=== PATIENT | male | born 1980 | race Caucasian/White ===

== ENCOUNTER 2023-01-06 01:58 | Inpatient (IN) | payer SELFPAY ==
[2023-01-06] VITALS (46 sets, daily range): BP systolic 98–143; BP diastolic 69–95
[~2023-01-06] VITALS: Ht 177.8 cm; Wt 110.7 kg
[~2023-01-06 01:58] MED LIST: IBUP-779 PO; NAPROXIN PO
[2023-01-06] MEDS ORDERED: ONDANSETRON HCL 4MG/2ML INJ IV ONE (02:15)
[2023-01-06] MEDS ORDERED: SODIUM CHLORIDE 0.9% 1,000 ML IV ONE (02:15)
[2023-01-06 02:27] LABS: BASOPHILS % 0.9 % (0.0-2.0); HEMATOCRIT. 46.9 % (42.0-52.0); HEMOGLOBIN. 15.6 g/dL (14.0-18.0); LYMPHOCYTES % 24.9 % (20.0-50.0); MEAN CORPUSCULAR VOLUME 78.4 fL (80.0-94.0); MEAN PLATELET VOLUME 7.4 fl (7.4-10.4); NEUTROPHILS % 61.2 % (40.0-76.0); PLATELET 344 x1000/uL (130-400); RED BLOOD CELL COUNT 5.98 mill/uL (4.7-6.1); RED CELL DISTRIBUTION WIDTH 14.3 % (11.6-14.6)
[2023-01-06 02:30] LABS: CHLORIDE 106 mEq/L (98-107)
[2023-01-06] MEDS ORDERED: METOCLOPRAMIDE HCL 10MG/2ML VIAL IV ONE (02:30)
[2023-01-06 02:37] LABS: ETHANOL BLOOD 228 mg/dL
[2023-01-06 03:15] LABS: *AMPHETAMINES SCREEN URINE PRESUMTIVE POSITIVE (NEGATIVE); *BARBITURATES SCREEN URINE NEGATIVE (NEGATIVE); *BENZODIAZEPINES SCREEN URINE NEGATIVE (NEGATIVE); *COCAINE SCREEN URINE NEGATIVE (NEGATIVE); CANNABINOID URINE SCREEN NEGATIVE (NEGATIVE); METHADONE URINE SCREEN NEGATIVE (NEGATIVE); OPIATES URINE SCREEN NEGATIVE (NEGATIVE); PHENCYCLIDINE URINE SCREEN NEGATIVE (NEGATIVE)
[2023-01-06] MEDS ORDERED: AMPICILLIN SOD/SULBACTAM NA 3 G in SODIUM CHLORIDE 0.9% 100 ML IV SCH (03:15)
[2023-01-06] MEDS ORDERED: DIPHENHYDRAMINE 50MG/ML VIAL IV ONE (03:30)
[2023-01-06] MEDS ORDERED: LABETALOL 5MG/ML SYR 20 MG/4 ML SYRINGE IV ONE (04:00)
[2023-01-06] MEDS ORDERED: FENTANYL CITRATE/PF 50MCG/ML 2ML VIAL IV ONE (04:15)
[2023-01-06] MEDS ORDERED: PROPOFOL 10MG/ML 100ML 100 ML IV ONE (04:15)
[2023-01-06] MEDS ORDERED: FUROSEMIDE 100MG/10ML VIAL IVP ONE (04:15)
[2023-01-06] MEDS ORDERED: FUROSEMIDE 100MG/10ML VIAL IVP NR (04:30)
[2023-01-06] MEDS ORDERED: LORAZEPAM 2MG/ML CPJ IV ONE (04:45)
[2023-01-06 06:18] LABS: BG BASE EXCESS -6.9 mmol/L (-2.0-2.0); BG CARBOXYHEMOGLOBIN 1.3 % (0.5-1.5); BG DEOXYHEMOGLOBIN 5.7 % (0.0-5.0); BG FRACTION INSPIRED OXYGEN 100; BG HCO3 ACT 20.7 mmol/L (22.0-26.0); BG METHEMOGLOBIN 0.3 % (0.0-1.5); BG OXYGEN SATURATION 94.2 % (92.0-98.5); BG OXYHEMOGLOBIN 92.7 % (94.0-97.0); BG PCO2 49.3 mmHg (35.0-45.0); BG PH 7.242 (7.350-7.450); BG PO2 80.5 mmHg (75.0-100.0); BG SAMPLE SITE RIGHT BRACHIAL
[2023-01-06] MEDS ORDERED: FENTANYL 2500MCG/250ML PMX 250 ML IV ONE (06:45)
[2023-01-06] MEDS ORDERED: FENTANYL CITRATE 2,500 MCG in SODIUM CHLORIDE 0.9% 200 ML IV PRN (06:45)
[2023-01-06] MEDS ORDERED: MIDAZOLAM HCL 2 MG/2 ML VIAL IV ONE (07:00)
[2023-01-06] MEDS ORDERED: VECURONIUM BROMIDE 10 MG/VIAL IV ONE (07:00)
[2023-01-06] MEDS ORDERED: PIPERACILLIN/TAZOBACTAM 3.375GM/50ML PREMIX IV SCH (09:45)
[2023-01-06] MEDS ORDERED: PROPOFOL 10MG/ML 100ML 100 ML IV PRN (10:00)
[2023-01-06] MEDS ORDERED: PIPERACILLIN/TAZ 3.375G PREMIX 50 ML IV NR (10:00)
[2023-01-06] MEDS ORDERED: LORAZEPAM 2MG/ML CPJ IM PRN (10:00)
[2023-01-06] MEDS: PANTOPRAZOLE SODIUM 40 MG/VIAL IV SCH (10:16)
[2023-01-06] MEDS: LORAZEPAM 2MG/ML CPJ IV PRN (10:16)
[2023-01-06] MEDS ORDERED: FOLIC ACID 1 MG, THIAMINE HCL 100 MG, MVI, ADULT NO.1 10 ML in DEXTROSE 5% WATER 1,000 ML IV ONE ×4 (10:30)
[2023-01-06] MEDS ORDERED: VANCOMYCIN 2,000 MG in DEXT 5% WATER 500 ML IV NR (10:30)
[2023-01-06] MEDS ORDERED: MIDAZOLAM HCL 100 MG in SODIUM CHLORIDE 0.9% 80 ML IV PRN (11:00)
[2023-01-06 11:12] LABS: PROTHROMBIN TIME 10.5 sec (9.6-11.0)
[2023-01-06 11:17] LABS: PHOSPHORUS 2.4 mg/dL (2.5-4.9)
[2023-01-06 11:43] LABS: BG CARBOXYHEMOGLOBIN 0.6 % (0.5-1.5); BG DEOXYHEMOGLOBIN 1.9 % (0.0-5.0); BG FRACTION INSPIRED OXYGEN 100; BG HCO3 ACT 21.8 mmol/L (22.0-26.0); BG METHEMOGLOBIN 0.1 % (0.0-1.5); BG OXYGEN SATURATION 98.1 % (92.0-98.5); BG OXYHEMOGLOBIN 97.4 % (94.0-97.0); BG PCO2 50.9 mmHg (35.0-45.0); BG PH 7.249 (7.350-7.450); BG PO2 133.9 mmHg (75.0-100.0); BG SAMPLE SITE RIGHT RADIAL; BG TOTAL HEMOGLOBIN 16.4 g/dL (12.0-18.0); BG VENT MODE VENT - AC
[2023-01-06] MEDS: MIDAZOLAM HCL 100 MG in SODIUM CHLORIDE 0.9% 80 ML IV PRN ×2 (11:43→21:32)
[2023-01-06 12:28] LABS: FOLIC ACID (FOLATE) SERUM >20 ng/mL ng/mL (>5.38); VITAMIN B12 SERUM 504 pg/mL (211-911)
[2023-01-06] MEDS: FENTANYL CITRATE/PF 2,500 MCG in SODIUM CHLORIDE 0.9% 200 ML IV PRN (13:19)
[2023-01-06] MEDS: ENOXAPARIN 40MG/0.4ML SYR SUBCUT SCH ×2 (13:20→21:01)
[2023-01-06 14:12] LABS: CREATINE KINASE MB FRACTION 32.4 ng/mL (0.5-3.6)
[2023-01-06] MEDS ORDERED: PIPERACILLIN/TAZOBACTAM 3.375G in DEXT 5% WATER 50ML IV SCH (15:00)
[2023-01-06] MEDS ORDERED: DILTIAZEM HCL 5MG/ML 5ML VIAL IV NR (15:00)
[2023-01-06] MEDS: PIPERACILLIN/TAZOBACTAM 3.375G in DEXT 5% WATER 50ML IV SCH ×2 (15:28→21:00)
[2023-01-06] MEDS ORDERED: IPRATROPIUM/ALBUTEROL 0.5-3(2.5)MG/3ML NEB HHN PRN (17:00)
[2023-01-06] MEDS: METHYLPREDNISOLONE SOD SUCC 125 MG/2 ML VIAL IV SCH ×2 (17:23→23:19)
[2023-01-06] MEDS: DEXT 5%/0.9% NACL 1,000 ML IV SCH (17:23)
[2023-01-06] MEDS ORDERED: VANCOMYCIN 1.25GM PMX (XELLIA) 250 ML IV SCH ×2 (18:00)
[2023-01-06 18:44] LABS: CLARITY URINE TURBID (CLEAR); COLOR URINE RED (YELLOW); KETONES URINE NEGATIVE (NEGATIVE); LEUKOCYTE ESTERASE URINE 3+ (NEGATIVE); NITRITE URINE NEGATIVE (NEGATIVE); OCCULT BLOOD URINE 3+ (NEGATIVE); PH URINE 6.5 (4.5-8.0); PROTEIN URINE 3+ (NEGATIVE); UROBILINOGEN URINE 0.2 E.U./dL (0.2-1.0)
[2023-01-06] MEDS: DILTIAZEM HCL 60MG TABLET PO SCH (21:10)
[2023-01-07] VITALS (101 sets, daily range): BP systolic 131–174; BP diastolic 53–116
[2023-01-07] MEDS: DEXT 5%/0.9% NACL 1,000 ML IV SCH ×3 (02:42→23:48)
[2023-01-07 05:10] LABS: HEMATOCRIT. 45.5 % (42.0-52.0); MEAN CORPUSCULAR HEMOGLOBIN 26.1 pg (28.0-32.0); MEAN CORPUSCULAR VOLUME 79.1 fL (80.0-94.0); MEAN PLATELET VOLUME 7.9 fl (7.4-10.4); PLATELET 281 x1000/uL (130-400); RED BLOOD CELL COUNT 5.76 mill/uL (4.7-6.1); RED CELL DISTRIBUTION WIDTH 14.3 % (11.6-14.6)
[2023-01-07] MEDS: METHYLPREDNISOLONE SOD SUCC 125 MG/2 ML VIAL IV SCH ×4 (05:43→23:48)
[2023-01-07] MEDS: PIPERACILLIN/TAZOBACTAM 3.375G in DEXT 5% WATER 50ML IV SCH ×3 (05:43→21:22)
[2023-01-07] MEDS: DILTIAZEM HCL 60MG TABLET PO SCH ×3 (05:43→21:23)
[2023-01-07] MEDS: FENTANYL CITRATE/PF 2,500 MCG in SODIUM CHLORIDE 0.9% 200 ML IV PRN (05:56)
[2023-01-07] MEDS ORDERED: CALCIUM GLUCONATE 1,000 MG in DEXT 5% WATER 90 ML IV ONE (07:45)
[2023-01-07] MEDS ORDERED: DEXTROSE 50% WATER 50ML SYRINGE IV NR (08:00)
[2023-01-07] MEDS ORDERED: INSULIN REGULAR (HUMULIN R) 300UNITS/3ML VIAL IV NR (08:00)
[2023-01-07] MEDS ORDERED: SODIUM BICARBONATE 8.4% 1 MEQ/ML 50ML SYR IV NR (08:00)
[2023-01-07] MEDS: ENOXAPARIN 40MG/0.4ML SYR SUBCUT SCH ×2 (08:44→21:24)
[2023-01-07] MEDS: PANTOPRAZOLE SODIUM 40 MG/VIAL IV SCH (08:50)
[2023-01-07 08:54] LABS: PLATELET ESTIMATE NORMAL
[2023-01-07] MEDS ORDERED: CALCIUM GLUCONATE 1GM PREMIX 50 ML IV NR (09:00)
[2023-01-07 09:21] LABS: BG BASE EXCESS -4.7 mmol/L (-2.0-2.0); BG CARBOXYHEMOGLOBIN 0.5 % (0.5-1.5); BG DEOXYHEMOGLOBIN 1.7 % (0.0-5.0); BG FRACTION INSPIRED OXYGEN 90; BG HCO3 ACT 23.3 mmol/L (22.0-26.0); BG METHEMOGLOBIN 0.1 % (0.0-1.5); BG OXYGEN SATURATION 98.3 % (92.0-98.5); BG OXYHEMOGLOBIN 97.7 % (94.0-97.0); BG PCO2 54.6 mmHg (35.0-45.0); BG PH 7.248 (7.350-7.450); BG PO2 145.3 mmHg (75.0-100.0); BG SAMPLE SITE RIGHT RADIAL; BG TOTAL HEMOGLOBIN 14.7 g/dL (12.0-18.0); BG TOTAL RESPIRATORY RATE 25 b/min; BG VENT MODE VENT - AC
[2023-01-07] MEDS: MIDAZOLAM HCL 100 MG in SODIUM CHLORIDE 0.9% 80 ML IV PRN ×2 (09:40→23:54)
[2023-01-07 10:20] LABS: VANCOMYCIN TROUGH 10.7 ug/mL (5.0-10.0)
[2023-01-07] MEDS ORDERED: HEPARIN 1000 UNITS/ML 10ML ONE (10:22)
[2023-01-07] MEDS ORDERED: LIDOCAINE HCL 1% 10 MG/ML 10ML VIAL ONE (10:22)
[2023-01-07 11:27] LABS: HEPATITIS B SURFACE ANTIGEN NEGATIVE
[2023-01-08] VITALS (97 sets, daily range): BP systolic 132–186; BP diastolic 64–146
[2023-01-08 01:23] LABS: CREATINE KINASE MB FRACTION 9.2 ng/mL (0.5-3.6)
[2023-01-08] MEDS ORDERED: AMLODIPINE 10MG TABLET PO PRN (02:30)
[2023-01-08] MEDS ORDERED: AMLODIPINE 10MG TABLET PO SCH ×2 (02:30→09:00)
[2023-01-08] MEDS: CLONIDINE 0.1MG TABLET PO PRN (02:56)
[2023-01-08 05:41] LABS: HEMATOCRIT. 39.4 % (42.0-52.0); HEMOGLOBIN. 12.7 g/dL (14.0-18.0); MEAN CORPUSCULAR HEMOGLOBIN 25.3 pg (28.0-32.0); MEAN CORPUSCULAR VOLUME 78.6 fL (80.0-94.0); MEAN PLATELET VOLUME 8.5 fl (7.4-10.4); PLATELET 262 x1000/uL (130-400); RED BLOOD CELL COUNT 5.01 mill/uL (4.7-6.1); RED CELL DISTRIBUTION WIDTH 14.5 % (11.6-14.6)
[2023-01-08] MEDS: DILTIAZEM HCL 60MG TABLET PO SCH ×3 (05:53→21:16)
[2023-01-08] MEDS: PIPERACILLIN/TAZOBACTAM 3.375G in DEXT 5% WATER 50ML IV SCH ×3 (05:53→21:19)
[2023-01-08] MEDS: METHYLPREDNISOLONE SOD SUCC 125 MG/2 ML VIAL IV SCH ×2 (05:53→11:30)
[2023-01-08 06:00] LABS: CHLORIDE 107 mEq/L (98-107)
[2023-01-08 06:23] LABS: CREATINE KINASE 3284 IU/L (39-308); CREATINE KINASE MB FRACTION 7.1 ng/mL (0.5-3.6); PHOSPHORUS 3.6 mg/dL (2.5-4.9)
[2023-01-08] MEDS ORDERED: SODIUM CHLORIDE 0.45% 1,000 ML IV SCH (07:30)
[2023-01-08 07:32] LABS: PLATELET ESTIMATE NORMAL
[2023-01-08 07:58] LABS: BG BASE EXCESS -2.2 mmol/L (-2.0-2.0); BG CARBOXYHEMOGLOBIN 0.7 % (0.5-1.5); BG DEOXYHEMOGLOBIN 3.6 % (0.0-5.0); BG HCO3 ACT 25.4 mmol/L (22.0-26.0); BG METHEMOGLOBIN 0.3 % (0.0-1.5); BG OXYGEN SATURATION 96.4 % (92.0-98.5); BG OXYHEMOGLOBIN 95.4 % (94.0-97.0); BG PCO2 55.3 mmHg (35.0-45.0); BG PO2 93.8 mmHg (75.0-100.0); BG SAMPLE SITE RIGHT RADIAL; BG TOTAL HEMOGLOBIN 13.7 g/dL (12.0-18.0); BG VENT MODE VENT - AC
[2023-01-08 08:07] LABS: CREATINE KINASE 3535 IU/L (39-308)
[2023-01-08] MEDS: ENOXAPARIN 40MG/0.4ML SYR SUBCUT SCH ×2 (08:43→21:16)
[2023-01-08] MEDS: PANTOPRAZOLE SODIUM 40 MG/VIAL IV SCH (08:43)
[2023-01-08] MEDS: DEXT 5%/0.9% NACL 1,000 ML IV SCH ×2 (08:44→17:35)
[2023-01-08 13:08] LABS: CREATINE KINASE MB FRACTION 5.4 ng/mL (0.5-3.6)
[2023-01-08] MEDS: FENTANYL CITRATE/PF 2,500 MCG in SODIUM CHLORIDE 0.9% 200 ML IV PRN (13:08)
[2023-01-08] MEDS: METHYLPREDNISOLONE SOD SUCC 40 MG/ML VIAL IV SCH (17:24)
[2023-01-08] MEDS: MIDAZOLAM HCL 100 MG in SODIUM CHLORIDE 0.9% 80 ML IV PRN (20:15)
[2023-01-09] VITALS (93 sets, daily range): BP systolic 137–186; BP diastolic 89–138
[2023-01-09] MEDS: METHYLPREDNISOLONE SOD SUCC 40 MG/ML VIAL IV SCH ×4 (00:17→17:02)
[2023-01-09 04:29] LABS: HEMOGLOBIN. 12.3 g/dL (14.0-18.0); MEAN CORPUSCULAR HEMOGLOBIN 25.7 pg (28.0-32.0); MEAN CORPUSCULAR VOLUME 77.6 fL (80.0-94.0); MEAN PLATELET VOLUME 8.2 fl (7.4-10.4); PLATELET 258 x1000/uL (130-400); RED BLOOD CELL COUNT 4.76 mill/uL (4.7-6.1); RED CELL DISTRIBUTION WIDTH 14.5 % (11.6-14.6)
[2023-01-09 05:00] LABS: PHOSPHORUS 2.6 mg/dL (2.5-4.9)
[2023-01-09 05:07] LABS: PLATELET ESTIMATE NORMAL
[2023-01-09] MEDS: PIPERACILLIN/TAZOBACTAM 3.375G in DEXT 5% WATER 50ML IV SCH ×3 (05:28→22:44)
[2023-01-09] MEDS: DEXT 5%/0.9% NACL 1,000 ML IV SCH (05:28)
[2023-01-09] MEDS: DILTIAZEM HCL 60MG TABLET PO SCH (05:30)
[2023-01-09] MEDS: LORAZEPAM 2MG/ML CPJ IV PRN ×2 (07:39→12:29)
[2023-01-09] MEDS: ENOXAPARIN 40MG/0.4ML SYR SUBCUT SCH (08:01)
[2023-01-09] MEDS: PANTOPRAZOLE SODIUM 40 MG/VIAL IV SCH (08:01)
[2023-01-09] MEDS: MIDAZOLAM HCL 100 MG in SODIUM CHLORIDE 0.9% 80 ML IV PRN ×2 (08:02→18:22)
[2023-01-09 08:15] LABS: BG BASE EXCESS -1.1 mmol/L (-2.0-2.0); BG CARBOXYHEMOGLOBIN 0.4 % (0.5-1.5); BG DEOXYHEMOGLOBIN 2.6 % (0.0-5.0); BG FRACTION INSPIRED OXYGEN 70; BG HCO3 ACT 22.6 mmol/L (22.0-26.0); BG METHEMOGLOBIN 0.3 % (0.0-1.5); BG OXYGEN SATURATION 97.4 % (92.0-98.5); BG OXYHEMOGLOBIN 96.7 % (94.0-97.0); BG PCO2 34.5 mmHg (35.0-45.0); BG PH 7.434 (7.350-7.450); BG PO2 98.9 mmHg (75.0-100.0); BG SAMPLE SITE RIGHT RADIAL; BG TOTAL HEMOGLOBIN 12.6 g/dL (12.0-18.0); BG VENT MODE VENT - AC
[2023-01-09] MEDS: THIAMINE HCL 100MG TABLET NG SCH (09:00)
[2023-01-09] MEDS: FOLIC ACID 1MG TABLET NG SCH (09:00)
[2023-01-09 10:03] LABS: CREATINE KINASE 1723 IU/L (39-308)
[2023-01-09] MEDS ORDERED: RISPERIDONE 0.5MG TABLET PO SCH (11:00)
[2023-01-09] MEDS ORDERED: AMLODIPINE 5MG TABLET PO SCH (14:00)
[2023-01-09] MEDS: FENTANYL CITRATE/PF 2,500 MCG in SODIUM CHLORIDE 0.9% 200 ML IV PRN (14:21)
[2023-01-09] MEDS: PROPOFOL 10MG/ML 100ML 100 ML IV PRN ×2 (14:43→22:51)
[2023-01-09] MEDS: CLONIDINE 0.1MG TABLET PO PRN (21:01)
[2023-01-09] MEDS: RISPERIDONE 0.5MG TABLET PO SCH (21:01)
[2023-01-09] MEDS: ENOXAPARIN 30MG/0.3ML SYR SUBCUT SCH (21:02)
[2023-01-10] VITALS (97 sets, daily range): BP systolic 127–185; BP diastolic 73–126
[2023-01-10] MEDS: METHYLPREDNISOLONE SOD SUCC 40 MG/ML VIAL IV SCH ×3 (00:37→18:16)
[2023-01-10] MEDS: PROPOFOL 10MG/ML 100ML 100 ML IV PRN ×5 (04:38→23:02)
[2023-01-10] MEDS: PIPERACILLIN/TAZOBACTAM 3.375G in DEXT 5% WATER 50ML IV SCH ×3 (06:03→21:41)
[2023-01-10 06:11] LABS: BASOPHILS % 0.1 % (0.0-2.0); HEMATOCRIT. 37.5 % (42.0-52.0); HEMOGLOBIN. 12.2 g/dL (14.0-18.0); LYMPHOCYTES % 3.4 % (20.0-50.0); MEAN CORPUSCULAR HEMOGLOBIN 25.6 pg (28.0-32.0); MEAN CORPUSCULAR VOLUME 78.4 fL (80.0-94.0); MEAN PLATELET VOLUME 7.9 fl (7.4-10.4); MONOCYTES % 5.8 % (2.0-8.0); NEUTROPHILS % 90.7 % (40.0-76.0); PLATELET 261 x1000/uL (130-400); RED BLOOD CELL COUNT 4.78 mill/uL (4.7-6.1); RED CELL DISTRIBUTION WIDTH 14.3 % (11.6-14.6)
[2023-01-10 06:29] LABS: PHOSPHORUS 3.5 mg/dL (2.5-4.9)
[2023-01-10] MEDS: DEXTROSE 5% WATER 1,000 ML IV SCH ×2 (07:45→23:55)
[2023-01-10] MEDS: FOLIC ACID 1MG TABLET NG SCH (08:39)
[2023-01-10] MEDS: RISPERIDONE 0.5MG TABLET PO SCH (08:39)
[2023-01-10] MEDS: THIAMINE HCL 100MG TABLET NG SCH (08:39)
[2023-01-10] MEDS: PANTOPRAZOLE SODIUM 40 MG/VIAL IV SCH (08:39)
[2023-01-10] MEDS: AMLODIPINE 10MG TABLET PO SCH (08:40)
[2023-01-10] MEDS: CLONIDINE 0.1MG TABLET PO PRN ×2 (08:40→13:53)
[2023-01-10] MEDS: ENOXAPARIN 30MG/0.3ML SYR SUBCUT SCH ×2 (08:48→20:16)
[2023-01-10] MEDS ORDERED: PANTOPRAZOLE SODIUM 40 MG/VIAL IV SCH (09:00)
[2023-01-10 09:14] LABS: BG BASE EXCESS -0.8 mmol/L (-2.0-2.0); BG CARBOXYHEMOGLOBIN 0.6 % (0.5-1.5); BG HCO3 ACT 23.7 mmol/L (22.0-26.0); BG METHEMOGLOBIN 0.3 % (0.0-1.5); BG OXYHEMOGLOBIN 94.1 % (94.0-97.0); BG PCO2 38.9 mmHg (35.0-45.0); BG PH 7.403 (7.350-7.450); BG PO2 72.8 mmHg (75.0-100.0); BG SAMPLE SITE RIGHT RADIAL; BG TOTAL HEMOGLOBIN 12.4 g/dL (12.0-18.0); BG VENT MODE VENT - AC
[2023-01-10] MEDS: LORAZEPAM 2MG/ML CPJ IV PRN ×2 (11:40→18:15)
[2023-01-10] MEDS: MIDAZOLAM HCL 100 MG in SODIUM CHLORIDE 0.9% 80 ML IV PRN ×2 (11:52→23:55)
[2023-01-10] MEDS: FENTANYL CITRATE/PF 2,500 MCG in SODIUM CHLORIDE 0.9% 200 ML IV PRN (11:54)
[2023-01-10] MEDS ORDERED: HYDRALAZINE HCL 50MG TABLET PO NR (12:30)
[2023-01-10] MEDS: HYDRALAZINE HCL 50MG TABLET PO SCH ×2 (13:52→21:42)
[2023-01-10] MEDS: ACETAMINOPHEN 650MG/20.3ML UDC PO PRN ×2 (13:56→20:15)
[2023-01-10 16:31] LABS: PLATELET ESTIMATE NORMAL
[2023-01-10] MEDS: RISPERIDONE 1MG TABLET PO SCH (20:15)
[2023-01-11] VITALS (95 sets, daily range): BP systolic 123–173; BP diastolic 71–112
[2023-01-11] MEDS: PROPOFOL 10MG/ML 100ML 100 ML IV PRN ×7 (02:01→22:42)
[2023-01-11 05:39] LABS: HEMATOCRIT. 37.6 % (42.0-52.0); HEMOGLOBIN. 12.2 g/dL (14.0-18.0); MEAN CORPUSCULAR HEMOGLOBIN 25.3 pg (28.0-32.0); MEAN CORPUSCULAR VOLUME 78.1 fL (80.0-94.0); MEAN PLATELET VOLUME 7.9 fl (7.4-10.4); PLATELET 242 x1000/uL (130-400); RED BLOOD CELL COUNT 4.82 mill/uL (4.7-6.1)
[2023-01-11] MEDS: PIPERACILLIN/TAZOBACTAM 3.375G in DEXT 5% WATER 50ML IV SCH ×3 (06:05→21:33)
[2023-01-11] MEDS: HYDRALAZINE HCL 50MG TABLET PO SCH ×3 (06:06→21:33)
[2023-01-11 08:21] LABS: BG CARBOXYHEMOGLOBIN 0.4 % (0.5-1.5); BG DEOXYHEMOGLOBIN 2.9 % (0.0-5.0); BG FRACTION INSPIRED OXYGEN 70; BG HCO3 ACT 24.3 mmol/L (22.0-26.0); BG METHEMOGLOBIN 0.3 % (0.0-1.5); BG OXYGEN SATURATION 97.1 % (92.0-98.5); BG OXYHEMOGLOBIN 96.4 % (94.0-97.0); BG PCO2 31.5 mmHg (35.0-45.0); BG PH 7.506 (7.350-7.450); BG PO2 91.2 mmHg (75.0-100.0); BG SAMPLE SITE RIGHT BRACHIAL; BG TOTAL HEMOGLOBIN 14.1 g/dL (12.0-18.0); BG VENT MODE VENT - AC
[2023-01-11] MEDS: LORAZEPAM 2MG/ML CPJ IV PRN ×3 (09:07→22:27)
[2023-01-11] MEDS: MIDAZOLAM HCL 100 MG in SODIUM CHLORIDE 0.9% 80 ML IV PRN ×2 (09:08→17:33)
[2023-01-11] MEDS: AMLODIPINE 10MG TABLET PO SCH (09:09)
[2023-01-11] MEDS: THIAMINE HCL 100MG TABLET NG SCH (09:09)
[2023-01-11] MEDS: RISPERIDONE 1MG TABLET PO SCH ×2 (09:09→21:32)
[2023-01-11] MEDS: ACETAMINOPHEN 650MG/20.3ML UDC PO PRN ×2 (09:09→20:37)
[2023-01-11] MEDS: METHYLPREDNISOLONE SOD SUCC 40 MG/ML VIAL IV SCH ×2 (09:10→17:31)
[2023-01-11] MEDS: FOLIC ACID 1MG TABLET NG SCH (09:10)
[2023-01-11] MEDS: ENOXAPARIN 30MG/0.3ML SYR SUBCUT SCH ×2 (09:34→21:32)
[2023-01-11] MEDS: PANTOPRAZOLE SODIUM 40 MG/VIAL IV SCH (09:34)
[2023-01-11 10:00] LABS: PLATELET ESTIMATE NORMAL
[2023-01-11 11:06] LABS: CREATINE KINASE 428 IU/L (39-308)
[2023-01-11] MEDS: DOCUSATE SODIUM SUGAR FREE 100MG/10ML UDC NG SCH (13:49)
[2023-01-11] MEDS: FENTANYL CITRATE/PF 2,500 MCG in SODIUM CHLORIDE 0.9% 200 ML IV PRN (13:51)
[2023-01-11] MEDS ORDERED: METOPROLOL TARTRATE 50MG TABLET PO NR (17:30)
[2023-01-11] MEDS: CLONIDINE 0.1MG TABLET PO PRN (20:37)
[2023-01-11] MEDS: METOPROLOL TARTRATE 50MG TABLET PO SCH (22:28)
[2023-01-12] VITALS (96 sets, daily range): BP systolic 101–141; BP diastolic 51–84
[2023-01-12] MEDS ORDERED: QUETIAPINE FUMARATE 25MG TABLET PO NR (01:15)
[2023-01-12] MEDS ORDERED: HYDROCODONE/ACETAMINOPHEN 5/325MG TABLET PO PRN (01:15)
[2023-01-12] MEDS ORDERED: LORAZEPAM 2MG/ML CPJ IV NR (01:15)
[2023-01-12] MEDS: PROPOFOL 10MG/ML 100ML 100 ML IV PRN ×9 (01:15→21:47)
[2023-01-12] MEDS: ACETAMINOPHEN 650MG/20.3ML UDC PO PRN ×4 (02:57→20:01)
[2023-01-12] MEDS: MIDAZOLAM HCL 100 MG in SODIUM CHLORIDE 0.9% 80 ML IV PRN ×2 (02:58→13:59)
[2023-01-12] MEDS: FENTANYL CITRATE/PF 2,500 MCG in SODIUM CHLORIDE 0.9% 200 ML IV PRN (02:59)
[2023-01-12 04:07] LABS: HEMATOCRIT. 37.2 % (42.0-52.0); HEMOGLOBIN. 11.9 g/dL (14.0-18.0); MEAN CORPUSCULAR HEMOGLOBIN 25.3 pg (28.0-32.0); MEAN CORPUSCULAR VOLUME 78.7 fL (80.0-94.0); MEAN PLATELET VOLUME 7.7 fl (7.4-10.4); PLATELET 231 x1000/uL (130-400); RED BLOOD CELL COUNT 4.72 mill/uL (4.7-6.1); RED CELL DISTRIBUTION WIDTH 14.3 % (11.6-14.6)
[2023-01-12] MEDS: HYDRALAZINE HCL 50MG TABLET PO SCH ×3 (06:13→21:47)
[2023-01-12 07:42] LABS: BG BASE EXCESS -0.7 mmol/L (-2.0-2.0); BG CARBOXYHEMOGLOBIN 0.3 % (0.5-1.5); BG DEOXYHEMOGLOBIN 3.3 % (0.0-5.0); BG METHEMOGLOBIN 0.3 % (0.0-1.5); BG OXYGEN SATURATION 96.7 % (92.0-98.5); BG OXYHEMOGLOBIN 96.1 % (94.0-97.0); BG PCO2 45.2 mmHg (35.0-45.0); BG PO2 93.3 mmHg (75.0-100.0); BG SAMPLE SITE RIGHT RADIAL; BG TOTAL HEMOGLOBIN 12.3 g/dL (12.0-18.0); BG VENT MODE VENT - AC
[2023-01-12] MEDS: LORAZEPAM 2MG/ML CPJ IV PRN ×5 (08:22→18:56)
[2023-01-12] MEDS: PANTOPRAZOLE SODIUM 40 MG/VIAL IV SCH (08:23)
[2023-01-12] MEDS: AMLODIPINE 10MG TABLET PO SCH (08:23)
[2023-01-12] MEDS: DOCUSATE SODIUM SUGAR FREE 100MG/10ML UDC NG SCH (08:23)
[2023-01-12] MEDS: METOPROLOL TARTRATE 50MG TABLET PO SCH ×2 (08:24→20:23)
[2023-01-12] MEDS: RISPERIDONE 1MG TABLET PO SCH ×2 (08:24→20:23)
[2023-01-12] MEDS: THIAMINE HCL 100MG TABLET NG SCH (08:24)
[2023-01-12] MEDS: FOLIC ACID 1MG TABLET NG SCH (08:24)
[2023-01-12] MEDS: ENOXAPARIN 30MG/0.3ML SYR SUBCUT SCH ×2 (08:30→20:22)
[2023-01-12] MEDS: METHYLPREDNISOLONE SOD SUCC 40 MG/ML VIAL IV SCH (08:31)
[2023-01-12] MEDS ORDERED: HALOPERIDOL LACTATE 5MG/ML VIAL IM NR (11:15)
[2023-01-12] MEDS ORDERED: DEXTROSE 50% WATER 50ML SYRINGE IV PRN (12:00)
[2023-01-12] MEDS ORDERED: NALOXONE HCL 0.4MG/ML VIAL IV PRN (12:00)
[2023-01-12] MEDS: INSULIN LISPRO 100 UNITS/ML SUBCUT SCH ×3 (12:06→23:26)
[2023-01-12] MEDS: BLOOD SUGAR DIAGNOSTIC STRIP TEST SCH ×3 (12:06→23:25)
[2023-01-12] MEDS ORDERED: BENZTROPINE MESYLATE 1 MG/ML 2ML VIAL IM NR (12:30)
[2023-01-12 14:07] LABS: PLATELET ESTIMATE NORMAL
[2023-01-12] MEDS ORDERED: AZITHROMYCIN 500 MG TABLET GT NR (16:00)
[2023-01-13] VITALS (91 sets, daily range): BP systolic 113–180; BP diastolic 47–114
[2023-01-13] MEDS: MIDAZOLAM HCL 100 MG in SODIUM CHLORIDE 0.9% 80 ML IV PRN (00:27)
[2023-01-13] MEDS: FENTANYL CITRATE/PF 2,500 MCG in SODIUM CHLORIDE 0.9% 200 ML IV PRN (00:28)
[2023-01-13] MEDS: PROPOFOL 10MG/ML 100ML 100 ML IV PRN ×5 (00:28→10:28)
[2023-01-13] MEDS: ACETAMINOPHEN 650MG/20.3ML UDC PO PRN (03:31)
[2023-01-13 05:10] LABS: BASOPHILS % 0.1 % (0.0-2.0); EOSINOPHILS % 1.7 % (0.0-5.0); HEMATOCRIT. 35.1 % (42.0-52.0); HEMOGLOBIN. 11.4 g/dL (14.0-18.0); LYMPHOCYTES % 12.1 % (20.0-50.0); MEAN CORPUSCULAR HEMOGLOBIN 25.7 pg (28.0-32.0); MONOCYTES % 7.1 % (2.0-8.0); PLATELET 222 x1000/uL (130-400); RED BLOOD CELL COUNT 4.44 mill/uL (4.7-6.1); RED CELL DISTRIBUTION WIDTH 14.7 % (11.6-14.6)
[2023-01-13] MEDS: INSULIN LISPRO 100 UNITS/ML SUBCUT SCH ×3 (06:00→18:00)
[2023-01-13] MEDS: BLOOD SUGAR DIAGNOSTIC STRIP TEST SCH ×3 (06:05→18:14)
[2023-01-13] MEDS: HYDRALAZINE HCL 50MG TABLET PO SCH ×3 (06:18→22:24)
[2023-01-13 08:04] LABS: BG BASE EXCESS -1.2 mmol/L (-2.0-2.0); BG CARBOXYHEMOGLOBIN 0.3 % (0.5-1.5); BG DEOXYHEMOGLOBIN 4.3 % (0.0-5.0); BG HCO3 ACT 23.2 mmol/L (22.0-26.0); BG METHEMOGLOBIN 0.3 % (0.0-1.5); BG OXYGEN SATURATION 95.7 % (92.0-98.5); BG OXYHEMOGLOBIN 95.1 % (94.0-97.0); BG PCO2 38.1 mmHg (35.0-45.0); BG PH 7.403 (7.350-7.450); BG PO2 79.7 mmHg (75.0-100.0); BG SAMPLE SITE RIGHT RADIAL; BG TOTAL HEMOGLOBIN 12.1 g/dL (12.0-18.0); BG VENT MODE VENT - AC
[2023-01-13] MEDS ORDERED: HYDROCODONE/ACETAMINOPHEN 5/325MG TABLET PO PRN (08:15)
[2023-01-13] MEDS: THIAMINE HCL 100MG TABLET NG SCH (09:46)
[2023-01-13] MEDS: AZITHROMYCIN 500 MG TABLET GT SCH (09:46)
[2023-01-13] MEDS: FOLIC ACID 1MG TABLET NG SCH (09:46)
[2023-01-13] MEDS: METOPROLOL TARTRATE 50MG TABLET PO SCH ×2 (09:46→21:29)
[2023-01-13] MEDS: DOCUSATE SODIUM SUGAR FREE 100MG/10ML UDC NG SCH (09:46)
[2023-01-13] MEDS: PANTOPRAZOLE SODIUM 40 MG/VIAL IV SCH (09:46)
[2023-01-13] MEDS: RISPERIDONE 1MG TABLET PO SCH ×2 (09:47→21:27)
[2023-01-13] MEDS: AMLODIPINE 10MG TABLET PO SCH (09:47)
[2023-01-13] MEDS: ENOXAPARIN 30MG/0.3ML SYR SUBCUT SCH ×2 (09:47→21:28)
[2023-01-13] MEDS ORDERED: HALOPERIDOL LACTATE 5MG/ML VIAL IM NR ×2 (10:15→15:00)
[2023-01-13] MEDS: DEXMEDETOMIDINE 400 MCG/100 ML 100 ML IV PRN ×3 (11:57→18:20)
[2023-01-14] VITALS (56 sets, daily range): BP systolic 123–173; BP diastolic 65–106
[2023-01-14] MEDS: BLOOD SUGAR DIAGNOSTIC STRIP TEST SCH ×4 (00:34→18:02)
[2023-01-14 05:14] LABS: EOSINOPHILS % 2.3 % (0.0-5.0); HEMATOCRIT. 37.9 % (42.0-52.0); HEMOGLOBIN. 12.3 g/dL (14.0-18.0); LYMPHOCYTES % 7.3 % (20.0-50.0); MEAN CORPUSCULAR HEMOGLOBIN 25.4 pg (28.0-32.0); MEAN CORPUSCULAR VOLUME 78.6 fL (80.0-94.0); MEAN PLATELET VOLUME 8.3 fl (7.4-10.4); MONOCYTES % 7.3 % (2.0-8.0); NEUTROPHILS % 83.1 % (40.0-76.0); PLATELET 243 x1000/uL (130-400); RED BLOOD CELL COUNT 4.83 mill/uL (4.7-6.1); RED CELL DISTRIBUTION WIDTH 14.1 % (11.6-14.6)
[2023-01-14] MEDS: INSULIN LISPRO 100 UNITS/ML SUBCUT SCH ×4 (06:00→18:00)
[2023-01-14] MEDS: HYDRALAZINE HCL 50MG TABLET PO SCH ×3 (06:42→22:17)
[2023-01-14] MEDS: ENOXAPARIN 30MG/0.3ML SYR SUBCUT SCH ×2 (08:51→20:28)
[2023-01-14] MEDS: RISPERIDONE 1MG TABLET PO SCH ×2 (08:52→20:28)
[2023-01-14] MEDS: AMLODIPINE 10MG TABLET PO SCH (08:52)
[2023-01-14] MEDS: FOLIC ACID 1MG TABLET NG SCH (08:52)
[2023-01-14] MEDS: THIAMINE HCL 100MG TABLET NG SCH (08:52)
[2023-01-14] MEDS: DOCUSATE SODIUM SUGAR FREE 100MG/10ML UDC NG SCH (08:52)
[2023-01-14] MEDS: PANTOPRAZOLE SODIUM 40 MG/VIAL IV SCH (08:52)
[2023-01-14] MEDS: AZITHROMYCIN 500 MG TABLET GT SCH (08:52)
[2023-01-14] MEDS: METOPROLOL TARTRATE 50MG TABLET PO SCH ×2 (08:53→20:28)
[2023-01-14] MEDS ORDERED: HALOPERIDOL LACTATE 5MG/ML VIAL IM SCH (09:00)
[2023-01-14] MEDS: LORAZEPAM 2MG/ML CPJ IV PRN (09:12)
[2023-01-14 10:06] LABS: BG BASE EXCESS -0.1 mmol/L (-2.0-2.0); BG CARBOXYHEMOGLOBIN 1.2 % (0.5-1.5); BG DEOXYHEMOGLOBIN 2.5 % (0.0-5.0); BG FRACTION INSPIRED OXYGEN 50; BG HCO3 ACT 23.8 mmol/L (22.0-26.0); BG METHEMOGLOBIN 0.3 % (0.0-1.5); BG OXYGEN SATURATION 97.5 % (92.0-98.5); BG PCO2 36.4 mmHg (35.0-45.0); BG PH 7.433 (7.350-7.450); BG PO2 96.7 mmHg (75.0-100.0); BG SAMPLE SITE RIGHT BRACHIAL; BG VENT MODE VENT - AC
[2023-01-14] MEDS: DEXMEDETOMIDINE 400 MCG/100 ML 100 ML IV PRN (11:00)
[2023-01-14 12:27] LABS: BG BASE EXCESS 0.2 mmol/L (-2.0-2.0); BG CARBOXYHEMOGLOBIN 0.9 % (0.5-1.5); BG DEOXYHEMOGLOBIN 6.4 % (0.0-5.0); BG FRACTION INSPIRED OXYGEN 50; BG HCO3 ACT 24.1 mmol/L (22.0-26.0); BG METHEMOGLOBIN 0.3 % (0.0-1.5); BG OXYGEN SATURATION 93.5 % (92.0-98.5); BG OXYHEMOGLOBIN 92.4 % (94.0-97.0); BG PCO2 36.8 mmHg (35.0-45.0); BG PH 7.434 (7.350-7.450); BG PO2 68.2 mmHg (75.0-100.0); BG SAMPLE SITE RIGHT BRACHIAL; BG TOTAL HEMOGLOBIN 14.4 g/dL (12.0-18.0); BG VENT MODE VENT - CPAP
[2023-01-14 14:50] LABS: BG BASE EXCESS -0.4 mmol/L (-2.0-2.0); BG CARBOXYHEMOGLOBIN 0.6 % (0.5-1.5); BG DEOXYHEMOGLOBIN 2.8 % (0.0-5.0); BG FRACTION INSPIRED OXYGEN 60; BG HCO3 ACT 22.3 mmol/L (22.0-26.0); BG METHEMOGLOBIN 0.3 % (0.0-1.5); BG OXYGEN SATURATION 97.2 % (92.0-98.5); BG OXYHEMOGLOBIN 96.3 % (94.0-97.0); BG PCO2 31.3 mmHg (35.0-45.0); BG PH 7.471 (7.350-7.450); BG PO2 98.9 mmHg (75.0-100.0); BG SAMPLE SITE RIGHT BRACHIAL; BG VENT MODE COOL AEROSOL
[2023-01-14] MEDS: CHLORDIAZEPOXIDE 25MG CAPSULE PO SCH ×2 (17:19→22:17)
[2023-01-14] MEDS: CLONIDINE 0.1MG TABLET PO PRN (18:11)
[2023-01-15] VITALS (19 sets, daily range): BP systolic 136–178; BP diastolic 82–112
[2023-01-15 05:07] LABS: HEMATOCRIT 40.9 % (42.0-52.0); HEMOGLOBIN 13.2 g/dL (14.0-18.0); MEAN CORPUSCULAR HEMOGLOBIN 25.4 pg (28.0-32.0); MEAN CORPUSCULAR VOLUME 78.7 fL (80.0-94.0); PLATELET 288 x1000/uL (130-400); RED BLOOD CELL COUNT 5.19 mill/uL (4.7-6.1); RED CELL DISTRIBUTION WIDTH 14.1 % (11.6-14.6)
[2023-01-15] MEDS: INSULIN LISPRO 100 UNITS/ML SUBCUT SCH ×5 (06:00→21:15)
[2023-01-15] MEDS: BLOOD SUGAR DIAGNOSTIC STRIP TEST SCH ×5 (06:22→21:15)
[2023-01-15] MEDS: HYDRALAZINE HCL 50MG TABLET PO SCH (06:26)
[2023-01-15] MEDS: CHLORDIAZEPOXIDE 25MG CAPSULE PO SCH ×3 (06:26→21:00)
[2023-01-15] MEDS ORDERED: HYDRALAZINE 20MG/ML VIAL IV PRN (07:30)
[2023-01-15 07:40] LABS: BG BASE EXCESS -0.5 mmol/L (-2.0-2.0); BG CARBOXYHEMOGLOBIN 1.2 % (0.5-1.5); BG DEOXYHEMOGLOBIN 4.2 % (0.0-5.0); BG HCO3 ACT 23.2 mmol/L (22.0-26.0); BG METHEMOGLOBIN 0.3 % (0.0-1.5); BG OXYGEN SATURATION 95.7 % (92.0-98.5); BG OXYHEMOGLOBIN 94.3 % (94.0-97.0); BG PCO2 35.3 mmHg (35.0-45.0); BG PH 7.436 (7.350-7.450); BG PO2 79.6 mmHg (75.0-100.0); BG SAMPLE SITE RIGHT RADIAL; BG TOTAL HEMOGLOBIN 13.8 g/dL (12.0-18.0); BG VENT MODE NASAL CANNULA
[2023-01-15] MEDS ORDERED: POTASSIUM CHLORIDE 20MEQ TABLET SR PO NR (08:00)
[2023-01-15] MEDS: DOCUSATE SODIUM SUGAR FREE 100MG/10ML UDC NG SCH (09:00)
[2023-01-15] MEDS: PANTOPRAZOLE SODIUM 40 MG/VIAL IV SCH (09:05)
[2023-01-15] MEDS: DOXAZOSIN MESYLATE 2MG TABLET PO SCH ×2 (09:05→17:59)
[2023-01-15] MEDS: DESMOPRESSIN ACETATE 4MCG/ML AMP IV SCH ×2 (09:05→21:52)
[2023-01-15] MEDS: AMLODIPINE 10MG TABLET PO SCH (09:06)
[2023-01-15] MEDS: RISPERIDONE 1MG TABLET PO SCH (09:06)
[2023-01-15] MEDS: FOLIC ACID 1MG TABLET NG SCH (09:06)
[2023-01-15] MEDS: METOPROLOL TARTRATE 50MG TABLET PO SCH ×2 (09:07→21:00)
[2023-01-15] MEDS: ENOXAPARIN 30MG/0.3ML SYR SUBCUT SCH ×2 (09:08→21:00)
[2023-01-15] MEDS: THIAMINE HCL 100MG TABLET NG SCH (09:09)
[2023-01-15] MEDS: HYDRALAZINE HCL 100MG TABLET PO SCH ×2 (14:07→21:00)
[2023-01-15 15:03] LABS: SODIUM URINE RANDOM 86 mEq/L
[2023-01-15] MEDS: AZITHROMYCIN 500 MG TABLET GT SCH (20:59)
[2023-01-16] VITALS (12 sets, daily range): BP systolic 119–159; BP diastolic 79–105
[2023-01-16] MEDS: ACETAMINOPHEN 650MG/20.3ML UDC PO PRN (05:23)
[2023-01-16] MEDS: CHLORDIAZEPOXIDE 25MG CAPSULE PO SCH ×3 (05:24→21:38)
[2023-01-16] MEDS: HYDRALAZINE HCL 100MG TABLET PO SCH ×3 (05:24→21:35)
[2023-01-16 06:24] LABS: BASOPHILS % 0.2 % (0.0-2.0); EOSINOPHILS % 1.5 % (0.0-5.0); HEMATOCRIT. 39.8 % (42.0-52.0); HEMOGLOBIN. 13.1 g/dL (14.0-18.0); LYMPHOCYTES % 7.4 % (20.0-50.0); MEAN CORPUSCULAR VOLUME 78.8 fL (80.0-94.0); MEAN PLATELET VOLUME 8.5 fl (7.4-10.4); MONOCYTES % 8.5 % (2.0-8.0); NEUTROPHILS % 82.4 % (40.0-76.0); PLATELET 323 x1000/uL (130-400); RED BLOOD CELL COUNT 5.05 mill/uL (4.7-6.1); RED CELL DISTRIBUTION WIDTH 14.2 % (11.6-14.6)
[2023-01-16] MEDS: BLOOD SUGAR DIAGNOSTIC STRIP TEST SCH ×4 (07:53→21:00)
[2023-01-16] MEDS: INSULIN LISPRO 100 UNITS/ML SUBCUT SCH ×4 (08:01→21:39)
[2023-01-16] MEDS: ENOXAPARIN 30MG/0.3ML SYR SUBCUT SCH ×2 (08:52→20:24)
[2023-01-16] MEDS: AMLODIPINE 10MG TABLET PO SCH (08:53)
[2023-01-16] MEDS: AZITHROMYCIN 500 MG TABLET GT SCH (08:53)
[2023-01-16] MEDS: PANTOPRAZOLE SODIUM 40 MG/VIAL IV SCH (08:53)
[2023-01-16] MEDS: FOLIC ACID 1MG TABLET NG SCH (08:54)
[2023-01-16] MEDS: DOXAZOSIN MESYLATE 2MG TABLET PO SCH ×2 (08:54→17:13)
[2023-01-16] MEDS: METOPROLOL TARTRATE 50MG TABLET PO SCH ×2 (08:54→20:24)
[2023-01-16] MEDS: THIAMINE HCL 100MG TABLET NG SCH (08:54)
[2023-01-16] MEDS: DESMOPRESSIN ACETATE 4MCG/ML AMP IV SCH ×2 (08:55→21:16)
[2023-01-16 08:56] LABS: BG BASE EXCESS -1.3 mmol/L (-2.0-2.0); BG CARBOXYHEMOGLOBIN 0.8 % (0.5-1.5); BG DEOXYHEMOGLOBIN 2.5 % (0.0-5.0); BG FRACTION INSPIRED OXYGEN 50; BG HCO3 ACT 22.7 mmol/L (22.0-26.0); BG METHEMOGLOBIN 0.1 % (0.0-1.5); BG OXYGEN SATURATION 97.5 % (92.0-98.5); BG OXYHEMOGLOBIN 96.6 % (94.0-97.0); BG PCO2 36.1 mmHg (35.0-45.0); BG PH 7.417 (7.350-7.450); BG PO2 104.5 mmHg (75.0-100.0); BG SAMPLE SITE RIGHT RADIAL; BG TOTAL HEMOGLOBIN 13.9 g/dL (12.0-18.0); BG VENT MODE MASK - SIMPLE
[2023-01-16] MEDS: DOCUSATE SODIUM SUGAR FREE 100MG/10ML UDC NG SCH (08:58)
[2023-01-17] VITALS (11 sets, daily range): BP systolic 124–155; BP diastolic 73–88
[2023-01-17] MEDS: HYDRALAZINE HCL 100MG TABLET PO SCH ×3 (05:23→21:48)
[2023-01-17] MEDS: CHLORDIAZEPOXIDE 25MG CAPSULE PO SCH ×3 (05:40→21:48)
[2023-01-17] MEDS: BLOOD SUGAR DIAGNOSTIC STRIP TEST SCH ×4 (07:30→21:15)
[2023-01-17] MEDS: INSULIN LISPRO 100 UNITS/ML SUBCUT SCH ×4 (07:30→21:19)
[2023-01-17 07:47] LABS: BASOPHILS % 0.3 % (0.0-2.0); EOSINOPHILS % 1.8 % (0.0-5.0); HEMATOCRIT. 36.6 % (42.0-52.0); HEMOGLOBIN. 11.7 g/dL (14.0-18.0); LYMPHOCYTES % 8.3 % (20.0-50.0); MEAN CORPUSCULAR HEMOGLOBIN 25.3 pg (28.0-32.0); MEAN CORPUSCULAR VOLUME 79.3 fL (80.0-94.0); MEAN PLATELET VOLUME 8.5 fl (7.4-10.4); MONOCYTES % 6.7 % (2.0-8.0); NEUTROPHILS % 82.9 % (40.0-76.0); PLATELET 301 x1000/uL (130-400); RED BLOOD CELL COUNT 4.62 mill/uL (4.7-6.1); RED CELL DISTRIBUTION WIDTH 14.3 % (11.6-14.6)
[2023-01-17] MEDS: DESMOPRESSIN ACETATE 4MCG/ML AMP IV SCH ×3 (09:00→21:23)
[2023-01-17] MEDS: FOLIC ACID 1MG TABLET NG SCH (09:35)
[2023-01-17] MEDS: PANTOPRAZOLE SODIUM 40 MG/VIAL IV SCH (09:36)
[2023-01-17] MEDS: THIAMINE HCL 100MG TABLET NG SCH (09:36)
[2023-01-17] MEDS: ENOXAPARIN 30MG/0.3ML SYR SUBCUT SCH ×2 (09:36→21:15)
[2023-01-17] MEDS: AMLODIPINE 10MG TABLET PO SCH (09:36)
[2023-01-17] MEDS: METOPROLOL TARTRATE 50MG TABLET PO SCH ×2 (09:37→21:22)
[2023-01-17] MEDS: DOXAZOSIN MESYLATE 2MG TABLET PO SCH ×2 (09:37→17:47)
[2023-01-17] MEDS: DEXTROSE 5% WATER 1,000 ML IV SCH (09:38)
[2023-01-17] MEDS: DOCUSATE SODIUM SUGAR FREE 100MG/10ML UDC NG SCH (09:40)
[2023-01-18] VITALS (8 sets, daily range): BP systolic 117–141; BP diastolic 64–92
[2023-01-18] MEDS: DEXTROSE 5% WATER 1,000 ML IV SCH ×2 (02:44→17:50)
[2023-01-18] MEDS: HYDRALAZINE HCL 100MG TABLET PO SCH ×3 (05:39→21:39)
[2023-01-18] MEDS: CHLORDIAZEPOXIDE 25MG CAPSULE PO SCH ×3 (05:39→21:40)
[2023-01-18 06:28] LABS: BASOPHILS % 0.1 % (0.0-2.0); EOSINOPHILS % 2.9 % (0.0-5.0); HEMOGLOBIN. 11.3 g/dL (14.0-18.0); LYMPHOCYTES % 9.8 % (20.0-50.0); MEAN CORPUSCULAR HEMOGLOBIN 25.4 pg (28.0-32.0); MEAN CORPUSCULAR VOLUME 78.8 fL (80.0-94.0); MEAN PLATELET VOLUME 8.5 fl (7.4-10.4); MONOCYTES % 6.1 % (2.0-8.0); NEUTROPHILS % 81.1 % (40.0-76.0); PLATELET 274 x1000/uL (130-400); RED BLOOD CELL COUNT 4.44 mill/uL (4.7-6.1); RED CELL DISTRIBUTION WIDTH 14.4 % (11.6-14.6)
[2023-01-18 06:57] LABS: PHOSPHORUS 4.8 mg/dL (2.5-4.9)
[2023-01-18] MEDS: INSULIN LISPRO 100 UNITS/ML SUBCUT SCH ×4 (07:30→21:41)
[2023-01-18] MEDS: BLOOD SUGAR DIAGNOSTIC STRIP TEST SCH ×4 (08:23→21:40)
[2023-01-18] MEDS: ENOXAPARIN 30MG/0.3ML SYR SUBCUT SCH ×2 (08:41→21:40)
[2023-01-18] MEDS: PANTOPRAZOLE SODIUM 40 MG/VIAL IV SCH (08:41)
[2023-01-18] MEDS: AMLODIPINE 10MG TABLET PO SCH (08:42)
[2023-01-18] MEDS: METOPROLOL TARTRATE 50MG TABLET PO SCH ×2 (08:42→21:38)
[2023-01-18] MEDS: DOXAZOSIN MESYLATE 2MG TABLET PO SCH ×2 (08:42→17:55)
[2023-01-18] MEDS: THIAMINE HCL 100MG TABLET NG SCH (08:44)
[2023-01-18] MEDS: DOCUSATE SODIUM SUGAR FREE 100MG/10ML UDC NG SCH (08:44)
[2023-01-18] MEDS: FOLIC ACID 1MG TABLET NG SCH (08:44)
[2023-01-18] MEDS ORDERED: POTASSIUM CHLORIDE 20MEQ/PACKET PO NR (08:45)
[2023-01-18] MEDS ORDERED: KCL 20MEQ/100ML PREMIX 100 ML IV NR (17:00)
[2023-01-19] VITALS: BP 121/85
[2023-01-19 04:00] VITALS: BP 125/84
[2023-01-19] MEDS: CHLORDIAZEPOXIDE 25MG CAPSULE PO SCH ×2 (06:04→14:19)
[2023-01-19] MEDS: HYDRALAZINE HCL 100MG TABLET PO SCH ×2 (06:05→14:19)
[2023-01-19] MEDS: BLOOD SUGAR DIAGNOSTIC STRIP TEST SCH ×3 (06:26→17:20)
[2023-01-19] MEDS: INSULIN LISPRO 100 UNITS/ML SUBCUT SCH ×3 (06:27→17:20)
[2023-01-19 07:21] LABS: BASOPHILS % 0.2 % (0.0-2.0); EOSINOPHILS % 2.7 % (0.0-5.0); HEMATOCRIT. 34.2 % (42.0-52.0); LYMPHOCYTES % 7.7 % (20.0-50.0); MEAN CORPUSCULAR HEMOGLOBIN 25.3 pg (28.0-32.0); MEAN CORPUSCULAR VOLUME 78.5 fL (80.0-94.0); MEAN PLATELET VOLUME 8.2 fl (7.4-10.4); MONOCYTES % 5.7 % (2.0-8.0); NEUTROPHILS % 83.7 % (40.0-76.0); PLATELET 254 x1000/uL (130-400); RED BLOOD CELL COUNT 4.36 mill/uL (4.7-6.1); RED CELL DISTRIBUTION WIDTH 14.2 % (11.6-14.6)
[2023-01-19 07:36] LABS: CHLORIDE 115 mEq/L (98-107)
[2023-01-19 08:00] VITALS: BP 133/68
[2023-01-19] MEDS: DOCUSATE SODIUM SUGAR FREE 100MG/10ML UDC NG SCH (09:00)
[2023-01-19] MEDS ORDERED: METO-539 PO (09:45)
[2023-01-19] MEDS ORDERED: THIA100T72 NG (09:45)
[2023-01-19] MEDS ORDERED: AMLO10TA80 PO (09:45)
[2023-01-19] MEDS ORDERED: HYDR100T26 PO (09:45)
[2023-01-19] MEDS ORDERED: FOLI-43 NG (09:45)
[2023-01-19] MEDS ORDERED: DOXA-14 PO (09:45)
[2023-01-19] MEDS: AMLODIPINE 10MG TABLET PO SCH (09:47)
[2023-01-19] MEDS: THIAMINE HCL 100MG TABLET NG SCH (09:47)
[2023-01-19] MEDS: METOPROLOL TARTRATE 50MG TABLET PO SCH (09:47)
[2023-01-19] MEDS: FOLIC ACID 1MG TABLET NG SCH (09:48)
[2023-01-19] MEDS: ENOXAPARIN 30MG/0.3ML SYR SUBCUT SCH (09:48)
[2023-01-19] MEDS: DOXAZOSIN MESYLATE 2MG TABLET PO SCH ×2 (09:48→18:08)
[2023-01-19] MEDS: ACETAMINOPHEN 650MG/20.3ML UDC PO PRN (09:49)
[2023-01-19 12:00] VITALS: BP 117/75
[2023-01-19] MEDS ORDERED: HYDRALAZINE 10 MG in SODIUM CHLORIDE 0.9% 49.5 ML IV PRN (13:30)
[2023-01-19 13:56] VITALS: BP 117/75
[2023-01-19 16:00] VITALS: BP 127/87
== END 2023-01-19 19:35 | disposition home or self-care (01) | DRG 720 ==
LOC: ER 01:58 → EDBEDREQSVC 08:47 → MICUSO 11:47 → 5EST 01-15 18:29 → 6EST 01-19 01:15
PROVIDERS: ADMIT Internal Medicine; ATTEND Internal Medicine
PROC: 0BH17EZ Insertion of Endotracheal Airway into Trachea, Via Natural or Artificial Opening (ICD-10-PCS; principal; 2023-01-06)
PROC: 5A1955Z Respiratory Ventilation, Greater than 96 Consecutive Hours (ICD-10-PCS; 2023-01-06)
PROC: 02HV33Z Insertion of Infusion Device into Superior Vena Cava, Percutaneous Approach (ICD-10-PCS; 2023-01-07)
PROC: B548ZZA Ultrasonography of Superior Vena Cava, Guidance (ICD-10-PCS; 2023-01-07)
PROC: 5A1D70Z Performance of Urinary Filtration, Intermittent, Less than 6 Hours Per Day (ICD-10-PCS; 2023-01-07)
PROC: B548ZZA Ultrasonography of Superior Vena Cava, Guidance (ICD-10-PCS; 2023-01-11)
PROC: 02HV33Z Insertion of Infusion Device into Superior Vena Cava, Percutaneous Approach (ICD-10-PCS; 2023-01-11)
DX: A41.9 Sepsis, unspecified organism (principal); N17.0 Acute kidney failure with tubular necrosis; J69.0 Pneumonitis due to inhalation of food and vomit; G92.8 Other toxic encephalopathy; J96.01 Acute respiratory failure with hypoxia; J96.02 Acute respiratory failure with hypercapnia; E83.51 Hypocalcemia; D63.1 Anemia in chronic kidney disease; M62.82 Rhabdomyolysis; F10.129 Alcohol abuse with intoxication, unspecified; N39.0 Urinary tract infection, site not specified; E66.9 Obesity, unspecified; E87.0 Hyperosmolality and hypernatremia; E87.5 Hyperkalemia; F15.90 Other stimulant use, unspecified, uncomplicated; R73.9 Hyperglycemia, unspecified; T38.0X5A Adverse effect of glucocorticoids and synthetic analogues, initial encounter; N18.1 Chronic kidney disease, stage 1; Y90.7 Blood alcohol level of 200-239 mg/100 ml; Y92.89 Other specified places as the place of occurrence of the external cause
CPT/HCPCS: 31500; 36415; 36556; 36573; 36600; 71045; 71250; 76770; 76937; 80048; 80053; 80061; 80202; 80305; 80320; 81003; 82140; 82375; 82550; 82553; 82570; 82607; 82746; 82805; 82962; 83036; 83540; 83550; 83605; 83735; 83930; 83935; 84100; 84132; 84145; 84156; 84300; 84478; 84484; 85025; 85027; 86705; 86709; 86803; 87070; 87340; 90935; 93005; 93306; 94002; 94003; 97162; 97530; 99291; A6261; C1725; C1752; C1760; C9113; J0295; J0360; J0515; J0610; J1200; J1630; J1644; J1650; J1815; J1940; J2060; J2250; J2405; J2543; J2597; J2704; J2765; J2920; J2930; J3010; J3370; J3411; J3480; J3490; J7030; J7042; J7050; J7060; J7070; Q9957; A4315; G0480

== ENCOUNTER 2024-08-19 07:04 | Inpatient (IN) | payer SELFPAY ==
[~2024-08-19] VITALS: Ht 172.7 cm; Wt 129.7 kg
[~2024-08-19 07:04] MED LIST changes: +AMLO10TA80 PO; +DOXA-14 PO; +FOLI-43 NG; +FURO-151 MT; +HYDR100T11 PO; -IBUP-779 PO; +METO-539 PO; -NAPROXIN PO; +THIA100T72 NG
[2024-08-19 12:45] LABS: BASOPHILS % 1.2 % (0.0-2.0); DIFFERENTIAL COMMENT 0; EOSINOPHILS % 1.9 % (0.0-5.0); HEMATOCRIT. 46.4 % (42.0-52.0); HEMOGLOBIN. 14.9 g/dL (14.0-18.0); MEAN CORPUSCULAR HEMOGLOBIN 24.6 pg (28.0-32.0); MEAN CORPUSCULAR VOLUME 76.8 fL (80.0-94.0); MEAN PLATELET VOLUME 7.9 fl (7.4-10.4); MONOCYTES % 11.3 % (2.0-8.0); NEUTROPHILS % 69.6 % (40.0-76.0); PLATELET 305 x1000/uL (130-400); RED BLOOD CELL COUNT 6.04 mill/uL (4.7-6.1); RED CELL DISTRIBUTION WIDTH 16.3 % (11.6-14.6); WHITE BLOOD COUNT 8.8 x1000/uL (4.5-11.0)
[2024-08-19] MEDS ORDERED: ONDANSETRON HCL 4MG/2ML INJ IV PRN (13:00)
[2024-08-19] MEDS ORDERED: IPRATROPIUM/ALBUTEROL 0.5-3(2.5)MG/3ML NEB NEB PRN (13:00)
[2024-08-19] MEDS ORDERED: ACETAMINOPHEN 325MG TABLET PO PRN (13:00)
[2024-08-19] MEDS ORDERED: CLONIDINE 0.1MG TABLET PO PRN (13:00)
[2024-08-19] MEDS ORDERED: MAGNESIUM/ALUMINUM HYDROXIDE/SIMETHICONE 30ML UDC PO PRN (13:00)
[2024-08-19 13:04] LABS: POTASSIUM 4.1 mEq/L (3.5-5.1)
[2024-08-19 13:10] LABS: CREATININE 1.1 mg/dL (0.6-1.3)
[2024-08-19 13:17] LABS: CALCIUM 9.4 mg/dL (8.7-10.4); CARBON DIOXIDE 26 mEq/L (21-32); CHLORIDE 105 mEq/L (98-107); GLUCOSE 90 mg/dL (70-105); SODIUM 139 mEq/L (136-145); TROPONIN I HIGH SENSITIVITY 29 ng/L (3.0-53); UREA NITROGEN BLOOD 13 mg/dL (9-23)
[2024-08-19] MEDS ORDERED: NALOXONE HCL 0.4MG/ML VIAL IV PRN (13:30)
[2024-08-19] MEDS ORDERED: ZOLPIDEM TARTRATE 5MG TABLET PO PRN (21:00)
[2024-08-19] MEDS: FUROSEMIDE 40MG/4ML VIAL IVP SCH (22:12)
[2024-08-19] MEDS: PANTOPRAZOLE SODIUM 40 MG/VIAL IV SCH (22:12)
[2024-08-19] MEDS: ENOXAPARIN 30MG/0.3ML SYR SUBCUT SCH (22:13)
[2024-08-19 23:20] VITALS: BP 139/85; PULSE 104; RESP 18; TEMP 36.696
[2024-08-20] VITALS: BP 139/85; PULSE 104; RESP 20; TEMP 36.6696; O2SAT 98
[2024-08-20 00:03] LABS: CREATINE KINASE MB FRACTION 8.1 ng/mL (0.5-3.6)
[2024-08-20 04:00] VITALS: BP 119/77; PULSE 88; RESP 20; TEMP 36.114; O2SAT 98
[2024-08-20] MEDS: HYDRALAZINE HCL 100MG TABLET PO SCH (05:42)
[2024-08-20 07:21] LABS: CLARITY URINE CLEAR (CLEAR); COLOR URINE YELLOW (YELLOW); GLUCOSE URINE NEGATIVE (NEGATIVE); KETONES URINE NEGATIVE (NEGATIVE); LEUKOCYTE ESTERASE URINE NEGATIVE (NEGATIVE); NITRITE URINE NEGATIVE (NEGATIVE); OCCULT BLOOD URINE NEGATIVE (NEGATIVE); PROTEIN URINE NEGATIVE (NEGATIVE); SPECIFIC GRAVITY URINE 1.015 (1.005-1.030)
[2024-08-20 07:35] LABS: BASOPHILS % 1.2 % (0.0-2.0); DIFFERENTIAL COMMENT 0; EOSINOPHILS % 5.1 % (0.0-5.0); HEMATOCRIT. 45.6 % (42.0-52.0); HEMOGLOBIN. 14.8 g/dL (14.0-18.0); LYMPHOCYTES % 16.5 % (20.0-50.0); MEAN CORPUSCULAR HEMOGLOBIN 24.7 pg (28.0-32.0); MEAN CORPUSCULAR HGB CONC 32.4 g/dL (31.0-37.0); MEAN CORPUSCULAR VOLUME 76.3 fL (80.0-94.0); MEAN PLATELET VOLUME 8.2 fl (7.4-10.4); MONOCYTES % 10.2 % (2.0-8.0); PLATELET 311 x1000/uL (130-400); RED BLOOD CELL COUNT 5.98 mill/uL (4.7-6.1); RED CELL DISTRIBUTION WIDTH 16.6 % (11.6-14.6); WHITE BLOOD COUNT 7.5 x1000/uL (4.5-11.0)
[2024-08-20 07:38] LABS: CHLORIDE 105 mEq/L (98-107); POTASSIUM 4.4 mEq/L (3.5-5.1); SODIUM 140 mEq/L (136-145)
[2024-08-20 07:39] LABS: CARBON DIOXIDE 28 mEq/L (21-32)
[2024-08-20 07:43] LABS: CREATINE KINASE MB FRACTION 8.8 ng/mL (0.5-3.6)
[2024-08-20 07:44] LABS: CREATININE 1.1 mg/dL (0.6-1.3); GLUCOSE 89 mg/dL (70-105); UREA NITROGEN BLOOD 12 mg/dL (9-23)
[2024-08-20 08:00] VITALS: BP 122/68; PULSE 97; RESP 18; O2SAT 97
[2024-08-20 08:42] LABS: *AMPHETAMINES SCREEN URINE NEGATIVE (NEGATIVE); *BENZODIAZEPINES SCREEN URINE NEGATIVE (NEGATIVE)
[2024-08-20 08:43] LABS: *BARBITURATES SCREEN URINE NEGATIVE (NEGATIVE); *COCAINE SCREEN URINE NEGATIVE (NEGATIVE); CANNABINOID URINE SCREEN NEGATIVE (NEGATIVE); ECSTASY MDMA SCREEN URINE NEGATIVE (NEGATIVE); METHADONE URINE SCREEN NEGATIVE (NEGATIVE); OPIATES URINE SCREEN NEGATIVE (NEGATIVE); PHENCYCLIDINE URINE SCREEN NEGATIVE (NEGATIVE)
[2024-08-20] MEDS ORDERED: AMLODIPINE 10MG TABLET PO SCH (09:00)
[2024-08-20] MEDS: HYDROCODONE/ACETAMINOPHEN 5/325MG TABLET PO PRN (09:08)
[2024-08-20] MEDS: FOLIC ACID 1MG TABLET NG SCH (09:09)
[2024-08-20] MEDS: THIAMINE HCL 100MG TABLET NG SCH (09:09)
[2024-08-20] MEDS: DOXAZOSIN MESYLATE 2MG TABLET PO SCH (09:10)
[2024-08-20] MEDS: AMLODIPINE 5MG TABLET PO SCH (09:11)
[2024-08-20 12:47] VITALS: BP 106/61; PULSE 99; RESP 18; TEMP 36.50292; O2SAT 96
[2024-08-20 16:00] VITALS: BP 112/85; PULSE 97; RESP 20; TEMP 36.50292; O2SAT 97
[2024-08-20] MEDS: DIPHENHYDRAMINE 50MG CAPSULE PO PRN (18:54)
[2024-08-20 20:00] VITALS: BP 119/75; PULSE 101; RESP 20; TEMP 37.11408; O2SAT 100
[2024-08-20] MEDS: CARVEDILOL 3.125 MG TABLET PO SCH (21:00)
[2024-08-20] MEDS: LOSARTAN 25 MG TABLET PO SCH (21:00)
[2024-08-20] MEDS: HYDRALAZINE HCL 50MG TABLET PO SCH (21:10)
[2024-08-21] VITALS: BP 106/69; PULSE 101; RESP 19; TEMP 36.22512; O2SAT 97
[2024-08-21] MEDS ORDERED: CEFEPIME 1GM IN DEXT 5% 50ML IV SCH (00:15)
[2024-08-21] MEDS: VANCOMYCIN 2,000 MG in DEXT 5% WATER 500 ML IV NR (02:00)
[2024-08-21 04:00] VITALS: BP 110/62; PULSE 95; RESP 19; TEMP 36.44736; O2SAT 99
[2024-08-21] MEDS: CEFEPIME 1GM/50ML 50 ML IV SCH (04:00)
[2024-08-21 08:00] VITALS: BP 110/66; PULSE 97; RESP 18; TEMP 36.114; O2SAT 96
[2024-08-21 08:42] LABS: CARBON DIOXIDE 29 mEq/L (21-32); CHLORIDE 105 mEq/L (98-107); SODIUM 140 mEq/L (136-145)
[2024-08-21 08:43] LABS: CALCIUM 9.2 mg/dL (8.7-10.4)
[2024-08-21 08:46] LABS: BASOPHILS % 1.3 % (0.0-2.0); DIFFERENTIAL COMMENT 0; EOSINOPHILS % 6.5 % (0.0-5.0); HEMATOCRIT. 43.6 % (42.0-52.0); HEMOGLOBIN. 14.2 g/dL (14.0-18.0); LYMPHOCYTES % 15.7 % (20.0-50.0); MEAN CORPUSCULAR HEMOGLOBIN 24.7 pg (28.0-32.0); MEAN CORPUSCULAR HGB CONC 32.6 g/dL (31.0-37.0); MEAN CORPUSCULAR VOLUME 75.8 fL (80.0-94.0); MEAN PLATELET VOLUME 7.9 fl (7.4-10.4); MONOCYTES % 9.5 % (2.0-8.0); PLATELET 298 x1000/uL (130-400); RED BLOOD CELL COUNT 5.75 mill/uL (4.7-6.1); RED CELL DISTRIBUTION WIDTH 16.4 % (11.6-14.6); WHITE BLOOD COUNT 5.9 x1000/uL (4.5-11.0)
[2024-08-21 08:47] LABS: CREATININE 1.2 mg/dL (0.6-1.3); GLUCOSE 94 mg/dL (70-105)
[2024-08-21 08:48] LABS: UREA NITROGEN BLOOD 14 mg/dL (9-23)
[2024-08-21] MEDS: SPIRONOLACTONE 25MG TABLET PO SCH (10:02)
[2024-08-21] MEDS ORDERED: CEFEPIME 2GM/50ML DUPLEX 50 ML IV SCH (11:00)
[2024-08-21 12:00] VITALS: BP 114/72; PULSE 94; RESP 20; TEMP 36.6696; TEMP 36.66960; O2SAT 95
[2024-08-21] MEDS ORDERED: SULF1TAB48 MT (12:45)
[2024-08-21] MEDS ORDERED: AMOX1TAB16 MT (12:45)
[2024-08-21 14:41] VITALS: BP 117/74; PULSE 74; TEMP 98; O2SAT 98
[2024-08-21] MEDS ORDERED: VANCOMYCIN 1.25GM PMX (XELLIA) 250 ML IV SCH (15:00)
[2024-08-21] MEDS ORDERED: VANCOMYCIN 1.5GM PMX (XELLIA) 300 ML IV SCH (21:00)
[2024-08-21] MEDS ORDERED: ENOXAPARIN 40MG/0.4ML SYR SUBCUT SCH (21:00)
[2024-08-22] MEDS ORDERED: FAMOTIDINE 20MG/2ML VIAL IV SCH (09:00)
== END 2024-08-21 16:27 | disposition home or self-care (01) | DRG 194 ==
LOC: ER 07:04 → 8WST 09:38
PROVIDERS: ADMIT Internal Medicine; ATTEND Internal Medicine
DX: I11.0 Hypertensive heart disease with heart failure (principal); E78.5 Hyperlipidemia, unspecified; M79.89 Other specified soft tissue disorders; I50.9 Heart failure, unspecified; Z79.899 Other long term (current) drug therapy
CPT/HCPCS: 36415; 71045; 80048; 80305; 81003; 82550; 82553; 83880; 84484; 85025; 93005; 93970; 99285; A4663; J0692; J1650; J1940; J2470; J3370; J7060; Q0163